=== PATIENT | born 1980 | race African-American/Black ===

== ENCOUNTER 2019-08-27 18:40 | Emergency (ER) | payer OTHER ==
[~2019-08-27] VITALS: Ht 170.2 cm; Wt 129.5 kg
[2019-08-28 01:04] VITALS: BP 134/74
== END 2019-08-28 01:05 | disposition home or self-care (01) ==
LOC: ER 18:40
DX: R60.0 Localized edema (principal); J45.909 Unspecified asthma, uncomplicated; Z88.6 Allergy status to analgesic agent; Z88.0 Allergy status to penicillin; Z88.2 Allergy status to sulfonamides; Z88.1 Allergy status to other antibiotic agents
CPT/HCPCS: 29515; 99283